=== PATIENT | male | born 1980 | race Caucasian/White ===

== ENCOUNTER 2022-08-25 10:07 | Emergency (ER) | payer OTHER ==
[~2022-08-25] VITALS: Ht 177.8 cm; Wt 113.4 kg
[2022-08-25 10:08] VITALS: BP 153/101
[2022-08-25] MEDS ORDERED: NACL 0.45% 1,000 ML IV ONE (10:55)
--- NOTE | 2022-08-25 11:06 | NUR ---
PT TAKEN TO BED 12 BY [facility]
[2022-08-25 11:29] LABS: BASOPHILS # (AUTO) 0.1 K/uL (0.00-0.22); BASOPHILS % (AUTO) 0.8 % (0.0-2.0); EOSINOPHILS # (AUTO) 0.1 K/uL (0-0.4); EOSINOPHILS % (AUTO) 1.6 % (0.0-4.0); HEMATOCRIT 44.5 % (36-52); HEMOGLOBIN 15.5 g/dL (12.0-18.0); LYMPHOCYTES # (AUTO) 2.9 K/uL (2.0-11.5); LYMPHOCYTES % (AUTO) 40.6 % (20.5-51.1); MEAN CORPUSCULAR HEMOGLOBIN 33 pg (27-31); MEAN CORPUSCULAR HGB CONC 35 g/dL (33-37); MEAN CORPUSCULAR VOLUME 93.8 fL (80-94); MONOCYTES # (AUTO) 0.4 K/uL (0.8-1.0); MONOCYTES % (AUTO) 5.2 % (1.7-9.3); NEUTROPHILS # (AUTO) 3.7 K/uL (1.8-7.7); NEUTROPHILS % (AUTO) 51.8 % (42.2-75.2); PLATELET COUNT (AUTO) 184 K/uL (140-450); RED BLOOD CELL COUNT(AUTO) 4.75 MIL/uL (4.20-6.10); RED CELL DISTRIBUTION WIDTH 14.2 % (11.6-13.7); WHITE BLOOD COUNT (AUTO) 7.1 K/uL (4.8-10.8)
[2022-08-25] MEDS ORDERED: NACL 0.9% 1,000 ML IV ONE (11:35)
[2022-08-25 11:49] LABS: ALBUMIN 4.2 g/dL (3.4-5.0); ANION GAP 16.4 (8-16); CARBON DIOXIDE 25.5 mmol/L (21-32); CREATININE 0.8 mg/dL (0.6-1.3); POTASSIUM 3.9 mmol/L (3.5-5.1); TOTAL BILIRUBIN 0.8 mg/dL (0.0-1.0)
--- NOTE | 2022-08-25 12:52 | NUR ---
patient made aware of urine sample, denies pain no tremors, no seizure, vss.
[2022-08-25 13:55] LABS: BARBITURATE, URINE NEGATIVE ng/ml (NEG <=200); BENZODIAZEPINE, URINE NEGATIVE ng/mL (NEG <=200); CANNABINOID, URINE NEGATIVE ng/mL (NEG <=50); COCAINE, URINE NEGATIVE ng/mL (NEG <=300); OPIATE, URINE NEGATIVE ng/mL (NEG <=2000); PHENCYCLIDINE SCREEN,URINE NEGATIVE ng/mL (NEG <=25)
[2022-08-25 14:37] VITALS: BP 115/70
--- NOTE | 2022-08-25 14:39 | NUR ---
patient alert, oriented x4 condition stable denies homelessness d/c home with instructions after care reviewed understood.
== END 2022-08-25 14:37 | disposition home or self-care (01) ==
LOC: EDBD 10:07 → MED 10:07
DX: F10.129 Alcohol abuse with intoxication, unspecified (principal); Y90.9 Presence of alcohol in blood, level not specified
CPT/HCPCS: 36415; 80053; 80305; 85025; 96360; 99283; G0482; J7030

== ENCOUNTER 2023-10-19 | Emergency (ER) | payer OTHER ==
[~2023-10-19] VITALS: Ht 175.3 cm; Wt 102.1 kg
[2023-10-19 00:12] VITALS: BP 135/90; PULSE 78; RESP 16; TEMP 97.3; O2SAT 98
[2023-10-19 01:00] VITALS: O2SAT 98
[2023-10-19] MEDS ORDERED: KEP500 PO (01:08)
[2023-10-19] MEDS: levETIRAcetam 500 MG TAB PO ONE (01:15)
[2023-10-19 02:00] VITALS: BP 135/90; PULSE 78; RESP 16; TEMP 97.3; O2SAT 98
== END 2023-10-19 02:00 | disposition home or self-care (01) ==
LOC: MED
DX: R56.9 Unspecified convulsions (principal); R03.0 Elevated blood-pressure reading, without diagnosis of hypertension; Z98.890 Other specified postprocedural states; Z87.820 Personal history of traumatic brain injury
CPT/HCPCS: 99283